=== PATIENT | female | born 1975 | race Caucasian/White ===

== ENCOUNTER → 2021-04-20 15:22 | Outpatient (CLI) | payer OTHER, SELFPAY ==
[2021-04-20 17:07] LABS: Hematocrit 21.4 % (37-47); Hemoglobin 6.8 g/dL (12.0-15.0); Mean Corp Hgb Conc 31.8 g/dL (32-36); Mean Corpuscular Hgb 27.1 pg (27.0-32.0); Mean Corpuscular Volume 85.3 fL (81-99); Platelet Count 234 K/mm3 (150-450); RBC Distribution Width SD 39.9 fl (35.1-43.9); Red Blood Count 2.51 M/mm3 (4.2-5.4); White Blood Count 3.3 K/mm3 (4.4-11.0)
[2021-04-20 17:26] LABS: Follicle Stimulating Hormone 11.4 mIU/mL; Luteinizing Hormone 3.1 mIU/mL; Prolactin 7.1 ng/mL; T4 Free Direct 0.97 ng/dL (0.76-1.46); Thyroid Stim Hormone (TSH) 1.24 uIU/mL (0.358-3.74)
[2021-04-25 15:18] LABS: HPV APTIMA, High Risk Negative (Negative)
== END ==
PROVIDERS: Visit Provider Obstetrics & Gynecology
DX: Z12.4 Encounter for screening for malignant neoplasm of cervix (principal); N92.6 Irregular menstruation, unspecified
CPT/HCPCS: 36415; 83001; 83002; 84146; 84439; 84443; 85027; 87624; 88175; G0145

== ENCOUNTER 2021-04-21 12:41 | Observation (INO) | payer OTHER, SELFPAY ==
[2021-04-21] VITALS (8 sets, daily range): BP systolic 102–111; BP diastolic 50–78; PULSE 68–85; RESP 16–18; TEMP 36.6–37.2; O2SAT 96–100; BMI 32.8
[2021-04-21 15:26] LABS: Absolute Neutrophil Count 2.1 X10^3/uL (2.0-7.7); Basophil# 0.02 X10^3/uL; Basophil% 0.6 % (0-1); Eosinophil# 0.05 X10^3/uL; Eosinophils% 1.5 % (0-5); Hematocrit 18.9 % (37-47); Lymphocyte % 21.6 % (19-41); Mean Corp Hgb Conc 31.7 g/dL (32-36); Mean Corpuscular Hgb 26.7 pg (27.0-32.0); Mean Platelet Vol. 9.4 fl (6.2-12.0); Monocyte# 0.37 X10^3/uL; Monocyte% 11.4 % (0-10); NRBC Flagged by Analyzer 0 % (0-5); Neutrophil # 2.09 X10^3/uL (2.7-7.7); Neutrophil % 64.6 % (47-70); Platelet Count 148 K/mm3 (150-450); RBC Distribution Width SD 39.4 fl (35.1-43.9); Red Blood Count 2.25 M/mm3 (4.2-5.4); White Blood Count 3.2 K/mm3 (4.4-11.0)
[2021-04-21 15:56] LABS: Anion Gap 5 (5-15); BUN 12 mg/dL (7-18); BUN/Creat Ratio 21.3 RATIO (10-20); Calcium,Total 8.4 mg/dL (8.5-10.1); Chloride 111 mmol/L (98-107); Creatinine, Serum 0.56 mg/dL (0.55-1.02); EST Glomerular Filtration Rate 122 mL/min (>60); Est Glom Filt Rate - Afr Amer 148 mL/min (>60); Estimated Creatinine Clearance 107.24 ml/min; Glucose 81 mg/dL (74-106); Potassium 3.7 mmol/L (3.5-5.1); Sodium Level 140 mmol/L (136-145)
--- NOTE | 2021-04-21 19:26 | PCM.HP.BLA ---
History and Physical Date of Admission: 04/21/21 Chief complaint: Vaginal bleeding History of present illness: 45-year-old with vaginal bleeding found to be severely anemic. Patient with mild weakness, overall able to ambulate. Denies chest pain, shortness of breath, nausea vomiting. Obstetric history: status post 4 vaginal deliveries Past medical history: None Medications: None Past surgical history: D&C Allergies: No known drug allergies Social history: Denies a history of smoking, alcohol use, drug use And history: Denies history DVT or PE Review of systems: Besides above pertinent positives a full review of systems was performed and found to be negative Physical exam: Vital signs: Blood pressure 106/61 pulse 79 respiratory rate 18 temp 98.7 SPO2 100% on room air General: Normal-appearing no acute distress HEENT: Normocephalic atraumatic no cervical lymphadenopathy Cardiac/respiratory: Nonlabored breathing, no use of accessory muscles Abdomen: Soft, nontender, positive bowel sounds Pelvic exam: normal external genitalia, normal vaginal rugae. Cervix within normal limits no lesions or masses. Small amount of blood in posterior vault. Uterus 7 to 8 cm no masses palpated. No adnexal masses palpated. Extremities: No edema, normal peripheral pulses Psych: Normal affect normal demeanor nonpressured speech In office ultrasound with retroverted uterus. Uterus measuring 8.7 x 6.7. Endometrium measuring 1.5 cm. Right and left ovary within normal limits. Assessment and plan: 45-year-old with acute blood loss anemia secondary to abnormal uterine bleeding. Patient previously started on OCP will increase dose to 1 tab every 6 hours until surgery tomorrow. For transfusion of 2 units of packed red blood cells now. Discussed medical versus surgical options for patient risk benefits alternatives included. Patient elects for hysteroscopy, dilation curettage, endometrial ablation. Patient understands the risk of the procedure include but are not limited to visceral or vascular injury, prolonged hospitalization, blood loss and need for transfusion, reoperation. Patient states understanding wish to proceed. All questions answered consent was signed. Scheduled for surgery tomorrow.
[2021-04-21 23:44] LABS: Internal QC Validated? YES +Cl - CLEAR BKGD; Pregnancy, Urine Negative Negative
[2021-04-22] VITALS (13 sets, daily range): BP systolic 88–117; BP diastolic 48–76; PULSE 62–91; RESP 16–18; TEMP 36.3–37.2; O2SAT 95–100; BMI 32.8
[2021-04-22] MEDS: NORGESTIMATE-ETHINYL ESTRADIOL 1 DOSE.PACK 1 TABLET PO ×4 (00:29→18:49)
[2021-04-22 06:01] LABS: Absolute Lymphocyte Count 0.68 X10^3/uL (0.83-4.51); Absolute Neutrophil Count 2.6 X10^3/uL (2.0-7.7); Basophil# 0.02 X10^3/uL; Basophil% 0.5 % (0-1); Eosinophil# 0.05 X10^3/uL; Eosinophils% 1.3 % (0-5); Hematocrit 24.4 % (37-47); Hemoglobin 7.9 g/dL (12.0-15.0); Lymphocyte # 0.68 X10^3/ul (0.83-4.51); Lymphocyte % 18.3 % (19-41); Mean Corp Hgb Conc 32.4 g/dL (32-36); Mean Corpuscular Hgb 27.7 pg (27.0-32.0); Mean Corpuscular Volume 85.6 fL (81-99); Mean Platelet Vol. 9.5 fl (6.2-12.0); Monocyte# 0.39 X10^3/uL; Monocyte% 10.5 % (0-10); NRBC Flagged by Analyzer 0 % (0-5); Neutrophil # 2.56 X10^3/uL (2.7-7.7); Neutrophil % 69.1 % (47-70); Platelet Count 142 K/mm3 (150-450); RBC Distribution Width CV 13.2 % (11.6-14.6); RBC Distribution Width SD 41.4 fl (35.1-43.9); Red Blood Count 2.85 M/mm3 (4.2-5.4); White Blood Count 3.7 K/mm3 (4.4-11.0)
[2021-04-22 06:13] LABS: International Normalized Ratio 1.4; Prothrombin Time (Protime)PT. 16.3 SECONDS (11.7-14.9)
[2021-04-22 06:14] LABS: Partial Thromboplast Time 31.1 Seconds (24.1-36.2)
[2021-04-22 06:32] LABS: AST(SGOT) 16 U/L (15-37); Alanine Aminotransfer ALT/SGPT 16 U/L (13-56); Albumin, Serum 2.9 g/dL (3.2-5.0); Alkaline Phosphatase 40 U/L (45-117); Bilirubin, Direct 0.17 mg/dL (0.00-0.30); Globulin 3.3 g/dL (2.2-4.2); Protein, Total 6.2 g/dL (6.4-8.2)
--- NOTE | 2021-04-22 09:06 | PCM.PN.OB ---
Subjective Subjective No overnight complaints. Vaginal bleeding has improved after increased OCP dose. Patient feels much improved after blood transfusion. Denies headache, chest pain, shortness of breath, nausea vomiting. Objective Data Objective Data Vital Signs: Vital Signs Temp Pulse Resp BP Pulse Ox 98.3 F 62 16 103/63 100 04/22/21 06:07 04/22/21 06:07 04/22/21 06:07 04/22/21 06:07 04/22/21 06:07 Oxygen Delivery Method Room Air Weight: 191 lb Body Mass Index (BMI) 32.8 Intake & Output: Intake and Output for Last 24 Hours 04/20/21 04/21/21 04/22/21 23:59 23:59 23:59 Intake Total 1160 / 1160 Balance 1160 / 1160 Lab / Micro Data Result Diagrams: 04/22/21 05:44 04/21/21 15:10 Labs: Laboratory Results - last 24 hr 04/21/21 04/21/21 04/21/21 15:10 15:10 15:15 WBC 3.2 L RBC 2.25 L Hgb 6.0 L* Hct 18.9 L MCV 84.0 MCH 26.7 L MCHC 31.7 L RDW Std Deviation 39.4 RDW Coeff of Misty 13.0 Plt Count 148 L MPV 9.4 Immature Gran % (Auto) 0.300 Neut % (Auto) 64.6 Lymph % (Auto) 21.6 [place] % (Auto) 11.4 H Eos % (Auto) 1.5 Baso % (Auto) 0.6 Absolute Neuts (auto) 2.1 Absolute Lymphs (auto) 0.70 L Nucleated RBC % 0 PT INR APTT Sodium 140 Potassium 3.7 Chloride 111 H Carbon Dioxide 24.0 Anion Gap 5 BUN 12 Creatinine 0.56 Estim Creat Clear Calc 107.24 Est GFR (MDRD) Af Amer 148 Est GFR (MDRD) Non-Af 122 BUN/Creatinine Ratio 21.3 H Glucose 81 Calcium 8.4 L Total Bilirubin Direct Bilirubin AST ALT Alkaline Phosphatase Total Protein Albumin Globulin Urine Test Blood Type A POSITIVE Antibody Screen NEGATIVE Crossmatch See Detail 04/21/21 04/22/21 04/22/21 23:29 05:44 05:44 WBC 3.7 L RBC 2.85 L Hgb 7.9 L Hct 24.4 L MCV 85.6 MCH 27.7 MCHC 32.4 RDW Std Deviation 41.4 RDW Coeff of Misty 13.2 Plt Count 142 L MPV 9.5 Immature Gran % (Auto) 0.300 Neut % (Auto) 69.1 Lymph % (Auto) 18.3 L [place] % (Auto) 10.5 H Eos % (Auto) 1.3 Baso % (Auto) 0.5 Absolute Neuts (auto) 2.6 Absolute Lymphs (auto) 0.68 L Nucleated RBC % 0 PT 16.3 H INR 1.4 APTT 31.1 Sodium Potassium Chloride Carbon Dioxide Anion Gap BUN Creatinine Estim Creat Clear Calc Est GFR (MDRD) Af Amer Est GFR (MDRD) Non-Af BUN/Creatinine Ratio Glucose Calcium Total Bilirubin Direct Bilirubin AST ALT Alkaline Phosphatase Total Protein Albumin Globulin Urine Test Negative Blood Type Antibody Screen Crossmatch 04/22/21 05:44 WBC RBC Hgb Hct MCV MCH MCHC RDW Std Deviation RDW Coeff of Misty Plt Count MPV Immature Gran % (Auto) Neut % (Auto) Lymph % (Auto) [place] % (Auto) Eos % (Auto) Baso % (Auto) Absolute Neuts (auto) Absolute Lymphs (auto) Nucleated RBC % PT INR APTT Sodium Potassium Chloride Carbon Dioxide Anion Gap BUN Creatinine Estim Creat Clear Calc Est GFR (MDRD) Af Amer Est GFR (MDRD) Non-Af BUN/Creatinine Ratio Glucose Calcium Total Bilirubin 0.60 Direct Bilirubin 0.17 AST 16 ALT 16 Alkaline Phosphatase 40 L Total Protein 6.2 L Albumin 2.9 L Globulin 3.3 Urine Test Blood Type Antibody Screen Crossmatch Physical Exam Const alert, oriented x3 and no apparent distress Exam Limitations: no limitations HEENT normocephalic and moist oral mucous membranes Head and Scalp: atraumatic Neck full ROM and no lymphadenopathy Lymph Lymphatic: no lymphadenopathy noted Resp normal respiratory effort, no retractions and no use of accessory muscles GI normal to inspection, nondistended, normoactive bowel sounds Extremity normal to inspection, full ROM and no clubbing, cyanosis or edema Skin no rashes or lesions noted Psych mental status grossly normal, affect normal, speech normal and activity/motor behavior normal Assessment & Plan (1) Abnormal uterine and vaginal bleeding, unspecified: PLAN: Hospital day 2 with abnormal uterine bleeding. Status post 2 units of packed red blood cell with appropriate rise in hemoglobin and vital signs stable. Patient feels much improved after transfusion. Patient started on OCP every 6 hours with improvement in vaginal bleeding. Patient scheduled today for hysteroscopy dilation curettage and Lizzette endometrial ablation. To remain n.p.o. Covid test ordered. Will likely discharge home tomorrow assuming stability
[2021-04-22 13:27] LABS: Pathologist Review Reviewed
[2021-04-22] MEDS: Lactated Ringers 1,000 ML 100 ML IV ×2 (13:55→16:05)
--- NOTE | 2021-04-22 14:30 | EMB_PTH ---
PATIENT: DELILAH KRAMER LOC: MS3 U#:[id number] AGE/SX: 45/F ROOM: [facility] – [place] RE04/21/[address]: Dr. Denise Howard DO : 1975 BED: 1 DIS: 04/23/2021 SPEC #: [id number] RECD: 04/22/21 15:52 STATUS: EZE REQ #: [id number] ANA LUISA: 04/22/21 14:[address]: Yogesh Howard DEPT: SURGICAL PATHOLOGY RECD BY: Kenisha Garces ENTERED: 04/23/21 10:12 SP TYPE: ENDOM BX/C OTHR DR: DO Dr. Jose M Dobson DO Tissues: A - Endometrium, NOS B - Fallopian tube Procedures: Surgery Specimen Level II Surgery Specimen Level IV Comments: @ Ordering doctor for SUII edited from to @ by SHAN at 04/23/21 1240 @ Ordering doctor for SUIV edited from to @ by SHAN at 04/23/21 1240 @ Submitting doctor edited from to @ by SHAN at 04/23/21 1240 HEADER OPERATION: Hysteroscopy, D & C, Lizzette, bilateral tubal ligation PRE-OP DIAGNOSIS: Abnormal uterine and vaginal bleeding TISSUE SUBMITTED: A ? Endometrial curettage, B ? Bilateral fallopian tubes MICROSCOPIC DIAGNOSIS A. Endometrial curettings: Disordered proliferative endometrium with focal glandular and stromal breakdown. B. Bilateral fallopian tubes, salpingectomy: Bilateral fallopian tubes, no pathologic diagnosis. SJ:ivan 04/24/2021 MICROSCOPIC DESCRIPTION Slides are reviewed. GROSS DESCRIPTION A - Received in fixative is one container labeled with the patient's name and designated endometrial curettings. The specimen consists of multiple irregular fragments of champion-red soft tissue that in aggregate measure 6 x 3 x 0.2 cm. The specimen is totally submitted in two cassettes. B - Received in fixative is one container labeled with the patient's name and designated bilateral fallopian tubes. The specimen consists of one fallopian tube measuring 5 cm in length and 0.6 cm in average diameter. A normal fimbriated end is present. The second fallopian tube is received in three fragments and in aggregate measures 7 cm in length and 0.5 cm in average diameter. The fimbriated end has a normal villous appearance. Commodity Loan Clerk sections from both fallopian tubes are submitted in two separate cassettes. / AM:ivan 04/23/21 TC:5 CPT: 87998, 86677 x2
--- NOTE | 2021-04-22 14:30 | EMB_PTH ---
PATIENT: DELILAH KRAMER LOC: MS3 U#:[id number] AGE/SX: 45/F ROOM: [facility] [place] RE04/21/[address]: Dr. Denise Howard DO : 1975 BED: 1 DIS: 04/23/2021 SPEC #: [id number] RECD: 04/22/21 15:52 STATUS: EZE REQ #: [id number] ANA LUISA: 04/22/21 14:[address]: Yogesh Howard DEPT: SURGICAL PATHOLOGY RECD BY: Kenisha Garces ENTERED: 04/23/21 10:12 SP TYPE: ENDOM BX/C OTHR DR: DO Dr. Jose M Dobson DO Tissues: A - Endometrium, NOS B - Fallopian tube Procedures: Surgery Specimen Level II Surgery Specimen Level IV Comments: @ Ordering doctor for SUII edited from to @ by SHAN at 04/23/21 1240 @ Ordering doctor for SUIV edited from to @ by SHAN at 04/23/21 1240 @ Submitting doctor edited from to @ by SHAN at 04/23/21 1240 HEADER OPERATION: Hysteroscopy, D & C, Lizzette, bilateral tubal ligation PRE-OP DIAGNOSIS: Abnormal uterine and vaginal bleeding TISSUE SUBMITTED: A ? Endometrial curettage, B ? Bilateral fallopian tubes MICROSCOPIC DIAGNOSIS A. Endometrial curettings: Disordered proliferative endometrium to simple hyperplasia without atypia with focal glandular and stromal breakdown. B. Bilateral fallopian tubes, salpingectomy: Bilateral fallopian tubes, no pathologic diagnosis. SJ:ivan 04/24/2021 SJ:ivan 04/29/2021 COMMENT Case has been reviewed in consultation with Dr. Sutton who concurs with the above diagnosis. IDC:AM MICROSCOPIC DESCRIPTION Slides are reviewed. GROSS DESCRIPTION A - Received in fixative is one container labeled with the patient's name and designated endometrial curettings. The specimen consists of multiple irregular fragments of champion-red soft tissue that in aggregate measure 6 x 3 x 0.2 cm. The specimen is totally submitted in two cassettes. B - Received in fixative is one container labeled with the patient's name and designated bilateral fallopian tubes. The specimen consists of one fallopian tube measuring 5 cm in length and 0.6 cm in average diameter. A normal fimbriated end is present. The second fallopian tube is received in three fragments and in aggregate measures 7 cm in length and 0.5 cm in average diameter. The fimbriated end has a normal villous appearance. Weaving Supervisor sections from both fallopian tubes are submitted in two separate cassettes. / AM:ivan 04/23/21 TC:5 CPT: 66292, 57362 x2
--- NOTE | 2021-04-22 15:40 | OP.PCM_ITS ---
Report of Operation Date of Procedure: 04/22/21 Pre-Operative Diagnosis: Abnormal uterine bleeding, acute blood loss anemia Post-Operative Diagnosis: Abnormal uterine bleeding, acute blood loss anemia Surgery/Procedure Performed:: Hysteroscopy, dilation curettage, endometrial ablation via Lizzette. Laparoscopic bilateral salpingectomy Description of Surgical Findings:: Surgeon: Yogesh Howard MD Anesthesia: General EBL: 10 cc Urine output: 300 cc IV fluids: 1000 cc Complications: None Specimen: Endometrial curettage, bilateral fallopian tubes Findings: Hysteroscopy with no signs of polyp or fibroid, within normal limits. Laparoscopy with normal uterus, tubes, and ovaries. 120 second endometrial ablation via Lizzette device performed uterine cavity 8 cm in length with cervical length 3 cm, cavity length 5 cm. Lizzette device cavity safety tests were passed. Consent: Patient with abnormal uterine bleeding and acute blood loss anemia in need of hysteroscopy dilation curettage, endometrial ablation via Lizzette and desires pe rmanent sterilization in need of bilateral tubal ligation. Patient understands the risk of the procedure include but are not limited to visceral or vascular injury, prolonged hospitalization, blood loss and need for transfusion, reoperation. Patient states understanding wish to proceed. All questions were answered and consent was signed. Procedure: Patient was brought back to the OR where general anesthesia found to be adequate. Patient was prepared and draped in a dorsolithotomy position with yellowfin stirrups. A weighted speculum placed in the posterior aspect of the vagina. Cervical dilators were used to dilate the cervix. Hysteroscope was inserted and above findings were noted. Endometrial curettage was performed and sent to pathology. Lizzette device was opened and cavity length set to 5 cm. Lizzette device was inserted and Lizzette cavity safety tests were passed. 120 second endometrial ablation was performed. Varies needle was inserted at the umbilicus, water safety test was passed, abdomen was insufflated. Infraumbilical fold incision was made for 5 mm trocar and trocar was inserted under direct visualization. Laparoscope was inserted and above findings were noted. Right lower quadrant 8 mm trocar was inserted under direct visualization. Left lower quadrant 5 mm trocar was then inserted under direct visualization. Using an atraumatic grasper and a LigaSure device the right fallopian tube was identified out to the fimbria and the mesosalpinx was cut and cauterized. Fallopian tube was removed and sent to pathology. Left fallopian tube was identified out to the fimbriae mesosalpinx was cut and cauterized and fallopian tube was removed and sent to pathology. Good hemostasis was noted. Abdomen was desufflated and trochars removed under direct visualization. Laparoscopic port sites were closed in a subcutaneous fashion. Good hemostasis was noted. All counts correct x2. Patient tolerated procedure well and was brought to recovery in a stable condition. nuclear medicine officer: Jose Antonio Farnsworth
[2021-04-22] MEDS: Acetaminophen 500 MG Tablet 1000 MG PO (18:49)
[2021-04-22] MEDS: 0.9% Saline Lock 10 ML Syringe IV (18:49)
[2021-04-22] MEDS: Ketorolac 30 MG/ML Syringe IV (18:49)
[2021-04-22] MEDS: Docusate Sodium 100 MG Capsule PO (22:01)
[2021-04-23] MEDS: Ketorolac 30 MG/ML Syringe IV ×2 (00:01→05:02)
[2021-04-23] MEDS: Acetaminophen 500 MG Tablet 1000 MG PO ×2 (00:01→05:02)
[2021-04-23] MEDS: 0.9% Saline Lock 10 ML Syringe IV ×2 (00:01→05:02)
[2021-04-23 00:08] VITALS: BP 93/58; PULSE 90; RESP 16; TEMP 36.8; O2SAT 100
[2021-04-23] MEDS: NORGESTIMATE-ETHINYL ESTRADIOL 1 DOSE.PACK 1 TABLET PO ×2 (05:02)
[2021-04-23 05:10] VITALS: BP 106/56; PULSE 86; RESP 16; TEMP 36.8; O2SAT 100
[2021-04-23 05:38] LABS: Hematocrit 23.9 % (37-47); Hemoglobin 7.8 g/dL (12.0-15.0); Mean Corp Hgb Conc 32.6 g/dL (32-36); Mean Corpuscular Hgb 27.3 pg (27.0-32.0); Mean Corpuscular Volume 83.6 fL (81-99); Mean Platelet Vol. 9.4 fl (6.2-12.0); Platelet Count 165 K/mm3 (150-450); RBC Distribution Width CV 13.3 % (11.6-14.6); RBC Distribution Width SD 41.3 fl (35.1-43.9); Red Blood Count 2.86 M/mm3 (4.2-5.4); White Blood Count 6.2 K/mm3 (4.4-11.0)
--- NOTE | 2021-04-23 07:09 | PCM.DC.BLA ---
Discharge Summary Date of Admission: 04/21/21 Date of Discharge: 04/23/21 Summary: Patient arrived to hospital on 04/21/2021 after being seen in office found to have severe anemia secondary to acute blood loss from abnormal uterine bleeding. Patient was admitted to the hospital and transfused 2 units of packed red blood cells and scheduled for surgery and started on estrogen. Patient underwent surgery on 04/22/2021 hysteroscopy dilation curettage endometrial ablation laparoscopic bilateral salpingectomy. Patient recovered overnight minimal bleeding and discharge home on 04/23/2021 with stable hemoglobin, stable vital signs, improved symptoms. Physical Exam Const alert, oriented x3 and no apparent distress HEENT normocephalic and moist oral mucous membranes Head and Scalp: normal to inspection and atraumatic Eyes PERRL Neck full ROM and no lymphadenopathy Resp normal respiratory effort, no retractions and no use of accessory muscles GI normal to inspection, nondistended, normoactive bowel sounds GI Narrative: Laparoscopic incisions clean dry and intact Extremity normal to inspection and full ROM Skin no rashes or lesions noted Psych mental status grossly normal, thought process normal, cooperative, affect normal and speech normal Meaningful Use Info Meaningful Use Diagnoses (Choose all that apply): None applicable Discharge Plan Admission Admit Date/Time: 04/21/21 12:41 Primary Reason for Your Visit: Abnormal uterine bleeding Attending Provider: Denise Howard Primary Care Provider: Jose M Schulz Instructions Patient Instructions: ED Dysfunctional Uterine Bleeding Additional Instructions / Restrictions: Regular diet. Lifting restrictions less than 25 pounds for 2 to 3 weeks, otherwise continue normal activity. Can drive. Can shower. No tub baths for 2 weeks. Call if fevers, increased bleeding, poorly controlled pain. Discharge Orders/Prescriptions Prescriptions: Discontinued norgestimate-ethinyl estradiol [Sprintec (28)] 0.25-35 mg-mcg Tablet 1 tab PO DAILY RF: 0 Referrals / Follow Up: Yogesh Howard MD [STAFF PHYSICIAN] - Within 2 Weeks Jose M Schulz DO [Primary Care Provider] - Disposition Disposition (needs filled in before D/C Order can be placed): Home, self care
--- NOTE | 2021-04-23 07:16 | PN.OBGYN_ITS ---
Subjective Subjective No overnight complaints. Minimal to no bleeding overnight. Feeling much improved. Denies headache, weakness, visual changes, chest pain, shortness of breath, nausea vomiting. Objective Data Objective Data Vital Signs: Vital Signs Temp Pulse Resp BP Pulse Ox 98.2 F 86 16 106/56 L 100 04/23/21 05:10 04/23/21 05:10 04/23/21 05:10 04/23/21 05:10 04/23/21 05:10 Oxygen Delivery Method Room Air Weight: 191 lb Body Mass Index (BMI) 32.8 Intake & Output: Intake and Output for Last 24 Hours 04/21/21 04/22/21 04/23/21 23:59 23:59 23:59 Intake Total 1160 / 1160 1000 / 1000 1747.17 / 1747.17 Output Total 300 / 300 700 / 700 Balance 1160 / 1160 700 / 700 1047.17 / 1047.17 Lab / Micro Data Result Diagrams: 04/23/21 05:17 04/21/21 15:10 Labs: Laboratory Results - last 24 hr 04/21/21 04/23/21 15:10 05:17 WBC 6.2 RBC 2.86 L Hgb 7.8 L Hct 23.9 L MCV 83.6 MCH 27.3 MCHC 32.6 RDW Std Deviation 41.3 RDW Coeff of Misty 13.3 Plt Count 165 MPV 9.4 [address] Review Reviewed Micro: Microbiology 04/22/21 09:00 Interface Orders SARS-CoV-2 Antigen (Rapid) - Final Physical Exam Const alert, oriented x3 and no apparent distress HEENT normocephalic Head and Scalp: atraumatic Eyes PERRL Neck full ROM and no lymphadenopathy Lymph Lymphatic: no lymphadenopathy noted Resp normal respiratory effort, no retractions and no use of accessory muscles GI normal to inspection, nondistended, normoactive bowel sounds Extremity normal to inspection, full ROM and no clubbing, cyanosis or edema Skin no rashes or lesions noted Psych mental status grossly normal, affect normal, speech normal and activity/motor behavior normal Assessment & Plan (1) Abnormal uterine and vaginal bleeding, unspecified: PLAN: Postoperative day 1 status post hysteroscopy dilation curettage Lizzette endometrial ablation and laparoscopic bilateral salpingectomy. Bleeding minimal minimal to none, hemoglobin stable status post units packed red blood c ells on 04/21/2021, vital signs stable, patient symptoms improved and asymptomatic. Will stop OCP. Based on stability okay to discharge home today. We will continue iron pill, discussed precautions. To follow-up in 2 weeks.
[2021-04-23 07:58] VITALS: O2SAT 98
--- NOTE | 2021-04-23 09:50 | PHA.DC.MR ---
Pharmacy Service has performed discharge medication reconciliation for this patient. No new medications at time of discharge. -Pt has no home medications The patient's discharge medication list was reviewed for discrepancies and discrepancies were resolved.
== END 2021-04-23 10:13 | disposition home or self-care (01) ==
PROVIDERS: Anesthesiology; Obstetrics & Gynecology; Admitting Provider Student in an Organized Health Care Education/Training Program; PCP Family Medicine; Visit Provider Student in an Organized Health Care Education/Training Program
PROC: 0U5B8ZZ Destruction of Endometrium, Via Natural or Artificial Opening Endoscopic (ICD-10-PCS; CPT 58558; principal; 2021-04-22 14:15)
DX: N85.01 Benign endometrial hyperplasia (principal); D62 Acute posthemorrhagic anemia; N93.9 Abnormal uterine and vaginal bleeding, unspecified; Z30.2 Encounter for sterilization
CPT/HCPCS: 58563; 58661; 36415; 36430; 80048; 80076; 81025; 85025; 85027; 85610; 85730; 86850; 86900; 86901; 86920; 86922; 87426; 88302; 88305; 96361; 96374; 96376; 99218; 99251; J7040; J7120; P9016; A4216; G0378; G0379; G0463; J2405

== ENCOUNTER → 2021-05-07 11:06 | Outpatient (CLI) | payer OTHER, SELFPAY ==
[2021-04-22 13:58] VITALS: BMI 32.8
[2021-05-07 12:36] LABS: Hematocrit 25.5 % (37-47); Mean Corp Hgb Conc 31.4 g/dL (32-36); Mean Corpuscular Hgb 26.1 pg (27.0-32.0); Mean Corpuscular Volume 83.1 fL (81-99); Mean Platelet Vol. 10.3 fl (6.2-12.0); Platelet Count 228 K/mm3 (150-450); RBC Distribution Width CV 14.5 % (11.6-14.6); RBC Distribution Width SD 43.4 fl (35.1-43.9); Red Blood Count 3.07 M/mm3 (4.2-5.4); White Blood Count 3.5 K/mm3 (4.4-11.0)
== END ==
PROVIDERS: PCP Family Medicine; Visit Provider Obstetrics & Gynecology
DX: N93.9 Abnormal uterine and vaginal bleeding, unspecified (principal)
CPT/HCPCS: 36415; 85027

== ENCOUNTER 2021-06-11 07:22 | Day surgery (SDC) | payer SELFPAY, OTHER ==
[2021-04-22 13:58] VITALS: BMI 32.8
[2021-06-08 17:18] LABS: Hematocrit 29.4 % (37-47); Hemoglobin 8.9 g/dL (12.0-15.0); Mean Corp Hgb Conc 30.3 g/dL (32-36); Mean Corpuscular Hgb 24.3 pg (27.0-32.0); Mean Corpuscular Volume 80.1 fL (81-99); Mean Platelet Vol. 10.9 fl (6.2-12.0); Platelet Count 227 K/mm3 (150-450); RBC Distribution Width CV 17.6 % (11.6-14.6); RBC Distribution Width SD 51.3 fl (35.1-43.9); Red Blood Count 3.67 M/mm3 (4.2-5.4); White Blood Count 4.9 K/mm3 (4.4-11.0)
[2021-06-08 17:43] LABS: International Normalized Ratio 1.3; Partial Thromboplast Time 34.3 Seconds (24.1-36.2); Prothrombin Time (Protime)PT. 15.8 SECONDS (11.7-14.9)
[2021-06-08 17:48] LABS: AST(SGOT) 24 U/L (15-37); Alanine Aminotransfer ALT/SGPT 23 U/L (13-56); Albumin, Serum 3.9 g/dL (3.2-5.0); Alkaline Phosphatase 49 U/L (45-117); Bilirubin, Direct 0.14 mg/dL (0.00-0.30); Globulin 3.6 g/dL (2.2-4.2); Magnesium 2.1 mg/dL (1.6-2.6); Protein, Total 7.5 g/dL (6.4-8.2)
[2021-06-11] VITALS (22 sets, daily range): BP systolic 84–130; BP diastolic 48–84; PULSE 56–87; RESP 14–18; TEMP 35.9–36.2; O2SAT 100; BMI 34.9
[2021-06-11] MEDS: Lactated Ringers 1,000 ML 40 ML IV ×3 (08:04→14:10)
[2021-06-11] MEDS: Acetaminophen 500 MG Tablet 1000 MG PO (08:09)
[2021-06-11] MEDS: Gabapentin 600 MG Tablet PO (08:10)
[2021-06-11 08:30] LABS: Bedside Glucose 61 mg/dL (70-110)
--- NOTE | 2021-06-11 09:30 | HYST_PTH ---
PATIENT: DELILAH KRAMER LOC: [facility] – [place] U#:[id number] AGE/SX: 45/F ROOM: RE06/11/[address]: Dr. Yogesh Howard MD : 1975 BED: DIS: 06/11/2021 SPEC #: [id number] RECD: 06/11/21 14:19 STATUS: EZE REMilli #: [id number] ANA LUISA: 06/11/21 09:[address]: Yogesh Howard DEPT: SURGICAL PATHOLOGY RECD BY: Jose Douglas ENTERED: 06/12/21 07:38 SP TYPE: HYSTERECT OTHR DR: Dr. Jose M Schulz, DO Tissues: Uterus, NOS Procedures: Surgery Specimen Level V HEADER OPERATION: Total Laparoscopic hysterectomy, cystoscopy PRE-OP DIAGNOSIS: Endometrial hyperplasia TISSUE SUBMITTED: Cervix, uterus MICROSCOPIC DIAGNOSIS Uterus, hysterectomy: Cervix ? nabothian cysts, squamous metaplasia and mild chronic inflammation. Endometrium ? secretory endometrium. Myometrium ? focal superficial adenomyosis and leiomyoma. AM:ivan 06/15/2021 COMMENT Case has been reviewed in consultation with Dr. Madrid who concurs with the above diagnosis. IDC:SJ MICROSCOPIC DESCRIPTION Slides are reviewed. GROSS DESCRIPTION Received in fixative is one container labeled with the patient's name and designated cervix, uterus. The specimen consists of a hysterectomy specimen consisting of uterus with cervix weighing 129 gm and measuring 9 x 7 x 4 cm. A subserosal nodule is noted. The rest of the serosal surface is champion, glistening. The ectocervical mucosa is unremarkable. The external os is slit-like in contour. The endocervical canal measures 2.6 cm in length and the endocervical mucosa is champion, glistening and unremarkable. Sections of the rest reveal a few cysts filled with mucoid material. The triangular endometrial cavity measures 4.5 cm in length and up to 2.5 cm in width. The endometrium is champion, glistening without any mass lesion and measures 0.1 cm in thickness. Sections of the uterine wall reveal a subserosal, champion, nodular mass measuring 1 cm in diameter. The uninvolved uterine wall measures up to 2.5 cm in thickness. Pharmacy Picking Tech sections are submitted in 11 cassettes as follows: 1 - anterior cervix, 2 - posterior cervix, 3-6 - anterior uterine wall, 7-10 - posterior uterine wall, entire endometrium is submitted, 11??nodular mass. / SJ:ivan 06/12/21 TC:5 CPT: 49695
--- NOTE | 2021-06-11 10:01 | PCM.HP.BLA ---
History and Physical Date of Admission: 06/11/21 Chief complaint: Endometrial hyperplasia History of present illness: 45-year-old for elective robotic assisted total laparoscopic hysterectomy bilateral salpingectomy, cystoscopy for endometrial hyperplasia. Patient denies headache, chest pain, shortness of breath, nausea vomiting, diarrhea, visual changes. Obstetric history: Patient status post for 's Past medical history: Denies Medications: None Past surgical history: D&C, hysteroscopy endometrial ablation Allergies: No known drug allergies Social history: Denies smoking, alcohol use, drug use Family history: Denies history DVT or PE Review of systems: Besides above pertinent positives a full review of systems was performed found to be negative Physical exam: Blood pressure: 123/60 pulse 66 respiratory rate 14 SPO2 100% on room air General: Normal-appearing no acute distress HEENT: Normocytic atraumatic no cervical of adenopathy Cardiac/respiratory: No use of accessory muscles, nonlabored breathing Abdomen: Soft, nontender, nondistended. Positive bowel sounds Pelvic exam: Normal external genitalia, normal vaginal rugae, cervix within normal limits. No palpable adnexal masses Extremities: No peripheral edema normal peripheral pulses Psych: Normal affect normal demeanor nonpressured speech Labs: Hemoglobin 8.9, hematocrit 29.4%. Blood type a positive antibody negative Assessment plan: 45-year-old with endometrial hyperplasia discussed risk benefits alternatives including expectant management patient anxious with hyperplasia elects for robotic assisted total laparoscopic direct me bilateral salpingectomy and cystoscopy. All questions were answered and consent was signed.
[2021-06-11] MEDS: Cefazolin 2 GM in 0.9% Normal Saline 100 ML IV (10:52)
[2021-06-11] MEDS: Lactated Ringers 1,000 ML 100 ML IV (11:30)
--- NOTE | 2021-06-11 13:48 | PCM.OPRPT ---
Report of Operation Date of Procedure: 06/11/21 Pre-Operative Diagnosis: Endometrial hyperplasia Post-Operative Diagnosis: Endometrial hyperplasia Surgery/Procedure Performed:: Total laparoscopic hysterectomy, cystoscopy Description of Surgical Findings:: Surgeon: Yogesh Howard MD Anesthesia: General EBL: 300 cc Urine output: 400 cc IV fluids: 1400 cc Complications none Specimen: cervix and uterus Findings: Normal uterus, tubes, ovaries. Cystoscopy post procedure revealed bilateral ureteral jets and no further pathology noted. Consent: Patient with endometrial hyperplasia anxious elects for total laparoscopic hysterectomy, cystoscopy. Patient understands risk of the procedure include but are not limited to visceral or vascular injury, prolonged hospitalization, blood loss need for transfusion, reoperation. Patient state understanding wish proceed. All questions answered consent was signed. Procedure: Patient is brought back to the OR where general anesthesia found to be adequate. 2 g of Ancef were given for infection prophylaxis. Patient was apparent draped in dorsal lithotomy position with yellowfin stirrups. Weighted speculum is placed in the posterior aspect of the vagina. Cervical dilators were used to dilate the cervix. Uterine manipulator was placed. Varies needle was inserted at the umbilicus x2 water safety test passed x2, failed insufflation. Varies needle inserted at [place] water safety test passed but with failed insufflation. Using a 5 mm trocar direct visualization Optiview performed at [place] abdomen was insufflated and above findings were noted. Bilateral lower quadrant 8 mm trochars were inserted under direct visualization. 8 mm trocar was inserted under direct visualization supraumbilical midline. Right upper quadrant 8 mm trocar was placed. Robot was docked and fenestrated bipolar monopolar scissors were attached. Left round ligament was cut and cauterized but noted robotic arm manipulation/articulation and inappropriate, unhooked/disconnected robot undocked and you straight stick manual instruments going forward. 8 mm supraumbilical trocar was removed and 12 mm trocar was inserted under direct visualization to use 10 mm laparoscope. Using an atraumatic grasper and a LigaSure device with L-hook the right round ligament was cut and cauterized, anterior posterior portions of broad ligament dissected. Bladder flap developed. Right utero-ovarian ligament cut and cauterized. Uterine arteries on the right were skeletonized cut and cauterized lateralized beyond the level of colpotomy cup. Left utero-ovarian ligament cut and cauterized. Bladder flap further developed beyond the level of colpotomy cup. Left uterine vessels were skeletonized cut and cauterized lateralized beyond the level colpotomy cup. Circumferential colpotomy was made, uterus was removed and good hemostasis was noted. Abdomen was desufflated 12 mm trocar fascia was closed. All other trochars were closed in a subcuticular fashion. Colpotomy was closed vaginally with continuous running lock suture. Good hemostasis was noted. Cystoscopy was performed and bilateral ureteral jets were noted, no further pathology noted. All counts correct x2. Patient tolerated procedure well was brought to recovery stable condition. car construction superintendent: Camryn Warner
--- NOTE | 2021-06-11 13:58 | PCM.DC ---
Discharge Instructions Diet Discharge Diet: No restrictions Activity Discharge Activity: Return to Normal Activity, May Drive and May Shower Lifting Restrictions: No lifting over 25 pounds for 2 to 3 weeks Dressing / Incision Call your doctor if your incision/area has: Continuous Slow Oozing and Foul Smelling Discharge Call your doctor if you observe: Fever of 101 or Higher, Shortness of breath and Chest pain Follow Up Care Please Follow Up With: Yogesh Howard MD When: 2 weeks postoperatively Test Results: Test results from this visit will be discussed in further detail at your follow-up appointment, if applicable. Discharge Plan Admission Attending Provider: Yogesh Howard Primary Care Provider: Jose M Schulz Discharge Orders/Prescriptions Prescriptions: New oxycodone 5 mg Tablet 5 mg PO Q6H PRN PRN (Reason: Pain Score 4-10/10) 5 Days Qty: 20 RF: 0 Continued ferrous sulfate [Iron (ferrous sulfate)] 325 mg (65 mg iron) Tablet 325 mg PO QODAY RF: 0 multivitamin Capsule 1 cap PO DAILY RF: 0 Referrals / Follow Up: Jose M Schulz DO [Primary Care Provider] - Disposition Disposition (needs filled in before D/C Order can be placed): Home, Self Care
== END 2021-06-11 20:30 | disposition home or self-care (01) ==
LOC: SDC 07:24 → AC 07:24
PROVIDERS: Anesthesiology; PCP Family Medicine; Referring Provider Obstetrics & Gynecology; Visit Provider Obstetrics & Gynecology
PROC: 0UT94ZZ Resection of Uterus, Percutaneous Endoscopic Approach (ICD-10-PCS; CPT 58570; principal; 2021-06-11 09:10)
DX: N87.9 Dysplasia of cervix uteri, unspecified (principal); D26.1 Other benign neoplasm of corpus uteri; N80.0 Endometriosis of uterus; N88.8 Other specified noninflammatory disorders of cervix uteri; N72 Inflammatory disease of cervix uteri; D64.9 Anemia, unspecified; Z20.822 Contact with and (suspected) exposure to COVID-19; Z79.899 Other long term (current) drug therapy
CPT/HCPCS: 00840; 58570; S2900; 36415; 80076; 82962; 83735; 85027; 85610; 85730; 86850; 86900; 86901; 87426; 88307; C9803; J7120; J2405

== ENCOUNTER 2024-10-02 04:07 | Emergency (ER) | payer OTHER, SELFPAY ==
[2024-10-02 04:09] VITALS: BP 137/83; PULSE 92; RESP 16; TEMP 36.6; O2SAT 100; BMI 34.7
--- NOTE | 2024-10-02 04:12 | EKG12_ITS ---
Test Reason : Blood Pressure : */* mmHG Vent. Rate : 84 BPM Atrial Rate : 84 BPM P-R Int : 164 ms QRS Dur : 86 ms QT Int : 376 ms P-R-T Axes : 34 20 29 degrees QTcB Int : 444 ms Normal sinus rhythm Normal ECG Confirmed by Eber Jeronimo ([id number]), content editor TALIA DOUGHERTY ([id number]) on 10/02/2024 9:22:49 AM Referred By: Confirmed By: Eber Jeronimo
[2024-10-02 04:13] VITALS: BMI 34.7
--- NOTE | 2024-10-02 04:13 | ED.VIS.LOWEX ---
HPI History of Present Illness Chief Complaint: Lower Extremity Injury Informant: patient and spouse/S.O. Narrative Narrative: Brought in by EMS from home right lower extremity pain. Per spouse symptoms throughout the day lateral aspect upper thigh. The evening reported felt like something moved up her leg and became short of breath for 15 minutes. EMS was contacted. States symptoms currently mild. No history of PE or DVT. 3 weeks ago had travel 9 hours with 1 stop. No cough. Hysterectomy 2 years ago. Denies any other past medical history. Denies any allergies. Prior similar symptoms: No PFSH PFSH Medical History Wears glasses Wears partial dentures Anemia Easy bruising Restless legs Non-smoker History of edema Bleeding tendency Anemia Home Medications ?Medication ?Instructions ?Recorded ?Last Taken ?Type ferrous sulfate 325 mg (65 mg 325 mg PO QODAY 06/04/21 Unknown History iron) tablet (Iron (ferrous sulfate)) multivitamin 1 cap PO DAILY 06/04/21 Unknown History oxycodone 5 mg tablet 5 mg PO Q6H PRN PRN Pain Score 06/11/21 Unknown Rx 4-1010 5 days #20 tabs Allergy/AdvReac Type Severity Reaction Status Date / Time No Known Allergies Allergy Verified 10/02/24 04:08 Family History no significant family his Surgical History History of hysteroscopy Hx of dilation and curettage Social History Smoking Status: Never smoker ROS ROS ED Constitutional Constitutional ED: Denies chills, fever(s) or sweats Eyes Eyes: Denies change in vision ENT ENT ED: Denies dysphagia or sore throat Cardiovascular Cardiovascular: Denies chest pain, leg edema, palpitations or racing heartbeat Respiratory/Chest Respiratory/Chest: Reports dyspnea; Denies cough or dyspnea on exertion Gastrointestinal Gastrointestinal: Denies abdominal pain, diarrhea, nausea or vomiting Genitourinary Genitourinary ED: Denies dysuria, hematuria or urinary frequency Musculoskeletal Musculoskeletal: Reports extremity pain; Denies back pain or neck pain Integumentary Denies rash or wounds Neurologic Neurologic: Denies headache(s), paresthesias or weakness EXAM Physical Exam Const Vital Signs: 10/02/24 04:09 Temperature 97.8 F Temperature Source Oral Pulse Rate 92 Respiratory Rate 16 Blood Pressure 137/83 H Blood Pressure Mean 101 Pulse Ox 100 Oxygen Delivery Method Room Air Positive well nourished and well developed General Appearance ED: well developed and NAD HEENT Reports moist mucous membranes normocephalic and atraumatic Eyes EOMs intact bilaterally and conjunctivae normal General Eye ED: Yes normal appearance of both eyes Neck no lymphadenopathy and supple General: Negative for tenderness Chest Wall Chest: Negative for tenderness Resp normal respiratory effort and normal air movement Effort and Inspection: symmetric chest movement; Negative for respiratory distress Cardio regular rate, regular rhythm and no murmurs Peripheral Pulses: pulses 2+ throughout GI normal to inspection, nondistended, normoactive bowel sounds and non-tender Palpation: Negative for guarding or rebound tenderness present Back/Spine no CVA tenderness and no thoracic nor lumbar tenderness Extremity normal to inspection Extremity Narrative: Varicosities noted upper outer thigh slightly lower extremity. There is no medial thigh tenderness no calf tenderness. Soft compartments. Pulses intact distally. General Extremety ED: Negative for edema or tenderness General Extremity: Negative for edema Neuro oriented x3 and no sensory deficits noted Sensorium / Orientation: awake and alert Skin no rashes or lesions noted and no wounds MDM MDM MDM Narrative Medical decision making narrative: Interventions / MDM: Differential diagnosis: Muscle strain, varicose veins, dyspnea Diagnosis considered but do not suspect: DVT ultrasound negative. Pulmonary embolism however negative D-dimer. Pneumothorax however negative chest x-ray. My EKG interpretation: Sinus rate of 84, no ST or T wave changes. Imaging independently reviewed and interpreted by myself: 2 view chest x-ray: No acute process. No pneumothorax. External documents reviewed: N/A Test considered but not ordered:N/A ED course: Tachycardia per EMS EKG, right lower extremity pain. EKG ordered. Low risk Wells criteria for PE with tachycardia. Will check labs and D-dimer. 0435: 2 point bedside ultrasound performed by myself negative for any popliteal DVT or any proximal DVT at the femoral saphenous joint down proximal two thirds of the femoral vein. All compressible. Patient varicosities superficially also evaluated no thrombus noted. Her tenderness along the lateral thigh evaluate ultrasound there is no abscess or fluid noticed along her tenderness area. She did report increasing activities over the last couple days with cleaning. 0449: EKG sinus rhythm no acute findings. D-dimer negative at 0.46. Creatinine 0.67. Hemoglobin 11 .7. Two-view chest x-ray ordered due to dyspnea. 0525: Checks x-ray treat by myself no acute process no pneumothorax. Vitals remained stable. Will ambulate with a pulse ox. 0555: Ambulated pulse ox greater than 93% per nursing. Currently at this time no formal ultrasound available to rule out DVT. Staff comes in at 7:30 AM, I discussed options with patient and significant other for outpatient order versus daily emergency department to get this done. They would like to wait and have it formally ruled out prior to discharge. Therefore order placed for DVT studies. 0740: Discussed with transport tank technician, no DVTs. Extensive varicose veins noted nonthrombosed. Will have patient follow-up with vascular surgery as an outpatient. Re-evaluation: stable Disposition discussed with patient/family/significant other: Patient and significant other Case discussed with consulting clinician: N/A This note was generated with [employer]ee[employer]ee[employer] dictation software. It may contain incorrect words, spelling, and punctuation that were not noted in checking the note before signing. Lab Data Attestation: I reviewed the patient's lab results. Labs: Laboratory Results - last 24 hr 10/02/24 04:24 WBC 6.4 RBC 3.89 L Hgb 11.7 L Hct 34.5 L MCV 88.7 MCH 30.1 MCHC 33.9 RDW Std Deviation 41.8 RDW Coeff of Misty 12.9 Plt Count 152 MPV 9.4 Immature Gran % (Auto) 0.300 Neut % (Auto) 75.9 H Lymph % (Auto) 14.5 L [place] % (Auto) 6.1 Eos % (Auto) 2.7 Baso % (Auto) 0.5 Absolute Neuts (auto) 4.9 Absolute Lymphs (auto) 0.93 Nucleated RBC % 0 D-Dimer Quant (PE/DVT) 0.46 Sodium 139 Potassium 3.8 Chloride 108 H Carbon Dioxide 25.0 Anion Gap 6 BUN 17 Creatinine 0.67 Estim Creat Clear Calc 101.20 Est GFR (MDRD) Af Amer 120 Est GFR (MDRD) Non-Af 99 BUN/Creatinine Ratio 25.4 H Glucose 99 Calcium 8.4 L Discharge Plan Triage Chief Complaint: Lower Extremity Injury ED Provider: Le,Austen Dx/Rx/DC Orders Clinical Impression: Muscle strain of right thigh, Varicose vein of leg, Dyspnea Instructions: ED Muscle Strain, Extremity, ED Varicose Veins Prescriptions: No Action ferrous sulfate [Iron (ferrous sulfate)] 325 mg (65 mg iron) Tablet 325 mg PO QODAY multivitamin Capsule 1 cap PO DAILY oxycodone 5 mg Tablet 5 mg PO Q6H PRN PRN (Reason: Pain Score 4-10/10) 5 Days Qty: 20 0RF Primary Care Provider: Jose M Schulz Referrals: Ryan Becerra MD [Med Staff - Active Staff] - 1-2 Weeks Jose M Schulz DO [Primary Care Provider] - 1 Week Activity Restrictions/Additional Instructions: EKG, D-dimer, chest x-ray negative. You have varicose veins. Ultrasound of your right lower extremity was performed negative for deep vein thrombosis. Follow-up with vascular surgery for evaluation of your varicose veins. Print Language: Armenian Disposition Disposition: Home, Self Care
[2024-10-02 04:33] LABS: Absolute Lymphocyte Count 0.93 X10^3/uL (0.83-4.51); Absolute Neutrophil Count 4.9 X10^3/uL (2.0-7.7); Basophil# 0.03 X10^3/uL; Basophil% 0.5 % (0-1); Eosinophil# 0.17 X10^3/uL; Eosinophils% 2.7 % (0-5); Hematocrit 34.5 % (37-47); Hemoglobin 11.7 g/dL (12.0-15.0); Lymphocyte # 0.93 X10^3/ul (0.83-4.51); Lymphocyte % 14.5 % (19-41); Mean Corp Hgb Conc 33.9 g/dL (32-36); Mean Corpuscular Hgb 30.1 pg (27.0-32.0); Mean Corpuscular Volume 88.7 fL (81-99); Mean Platelet Vol. 9.4 fl (6.2-12.0); Monocyte# 0.39 X10^3/uL; Monocyte% 6.1 % (0-10); NRBC Flagged by Analyzer 0 % (0-5); Neutrophil # 4.87 X10^3/uL (2.7-7.7); Neutrophil % 75.9 % (47-70); Platelet Count 152 K/mm3 (150-450); RBC Distribution Width CV 12.9 % (11.6-14.6); RBC Distribution Width SD 41.8 fl (35.1-43.9); Red Blood Count 3.89 M/mm3 (4.2-5.4); White Blood Count 6.4 K/mm3 (4.4-11.0)
[2024-10-02 04:45] LABS: D-Dimer Quantitative (DVT/PE) 0.46 FEU/ug/m (0.27-0.49)
[2024-10-02 04:46] LABS: Anion Gap 6 (5-15); BUN 17 mg/dL (7-18); BUN/Creat Ratio 25.4 RATIO (10-20); Calcium,Total 8.4 mg/dL (8.5-10.1); Chloride 108 mmol/L (98-107); Creatinine, Serum 0.67 mg/dL (0.55-1.02); EST Glomerular Filtration Rate 99 mL/min (>60); Est Glom Filt Rate - Afr Amer 120 mL/min (>60); Glucose 99 mg/dL (74-106); Potassium 3.8 mmol/L (3.5-5.1); Sodium Level 139 mmol/L (136-145)
--- NOTE | 2024-10-02 05:15 | RAD_ITS ---
EXAM: XR CHEST, 2 VIEWS CLINICAL INDICATION: dyspnea TECHNIQUE: Frontal and lateral views of the chest. COMPARISON: No relevant prior studies available. FINDINGS: LUNGS AND PLEURAL SPACES: Unremarkable. No consolidation or edema. No pneumothorax. No effusion. HEART: Unremarkable. Cardiac silhouette not enlarged. Normal pulmonary vasculature. MEDIASTINUM: Central airways and mediastinal contour are unremarkable. Calcified left hilar lymph nodes are present indicating remote granulomatous infection. BONES/JOINTS: Minimal thoracic dextroscoliosis. Accentuated thoracic kyphosis. Lower thoracic degenerative disc space narrowing with marginal osteophytes. No acute fracture. SOFT TISSUES: Clustered right upper quadrant calcifications consistent with cholelithiasis. RAD/Chest PA and Lateral IMPRESSION: No radiographic evidence of acute cardiopulmonary disease. Cholelithiasis. Electronically Signed: Milind Watts MD at 6:30 EST ,
[2024-10-02 05:29] VITALS: O2SAT 96
--- NOTE | 2024-10-02 05:58 | VDLE_ITS ---
Reason For Study: RLE PAIN RIGHT LEFT GSV is normal. CFV is compressible, spontaneous, competent, CFV is compressible, spontaneous, competent and demonstrates pulsatile venous flow. and demonstrates pulsatile venous flow. Compressible ASV ([place] 2.88cm x 1.63cm) noted FV is compressible, spontaneous, competent in the LT GROIN. and demonstrates pulsatile venous flow. POP V is compressible, spontaneous, competent and demonstrates pulsatile venous flow. T/P Trunk is compressible. PTV is compressible. RT PerV is compressible. Compressible ASV ([place]. 3.14cm x 1.74cm) noted in RT GROIN. Compressible varicosities noted throughout lateral and anterior right thigh. Procedure This is a venous duplex using B-mode, color flow and spectral Doppler. Exam performed portable in ED. A preliminary report was called and/or faxed to Dr. Lo & ED @ 08:00. VL/Venous Duplex US, Unilateral Interpretation Summary Deep veins of the right lower extremity are patent and compressible segmentally . There is no evidence of right lower extremity deep vein thrombosis. Valvular competence sandra ears intact within the proximal deep venous system on the right . The right great saphenous vein a ppears patent and compressible segmentally. The left common femoral vein is patent and compressib le . A large, patent and compressible accessory saphenous vein is noted in both the right and left g roin. Compressible varicosities are also noted in the right lateral and anterior thigh. Pulsatile flow is noted in the deep venous system bilaterally, which may be indicative of elevated central jorje ous pressure (i.e. congestive heart failure, pulmonary hypertension, etc.). Clinical correlation i s advised. Ordering Physician: Austen Lo Referring Physician: Jose M Schulz Performed By: Mague Lorenzo, RDCS, RVT
[2024-10-02 07:45] VITALS: BP 112/77; PULSE 76; RESP 18; TEMP 36.6; O2SAT 99
== END 2024-10-02 07:52 | disposition home or self-care (01) ==
PROVIDERS: Emergency Provider Emergency Medicine; PCP Family Medicine; Visit Provider Emergency Medicine
DX: S76.911A Strain of unspecified muscles, fascia and tendons at thigh level, right thigh, initial encounter (principal); X58.XXXA Exposure to other specified factors, initial encounter; I83.91 Asymptomatic varicose veins of right lower extremity; R06.00 Dyspnea, unspecified; Z79.899 Other long term (current) drug therapy
CPT/HCPCS: 71046; 80048; 85025; 85379; 93005; 93971; 99285; A4216

== ENCOUNTER 2025-09-09 07:31 | Emergency (ER) | payer OTHER, SELFPAY ==
[2025-09-09] VITALS (7 sets, daily range): BP systolic 104–139; BP diastolic 65–84; PULSE 64–89; RESP 14–19; TEMP 36.6–36.8; O2SAT 99–100; BMI 33.5
--- NOTE | 2025-09-09 08:15 | RAD_ITS ---
PROCEDURE: CHEST PA AND LATERAL 09/09/2025 REASON FOR EXAM: CHEST PAIN TECHNIQUE: Procedure Code: RADCXR Modality: DX Procedure: CHEST PA AND LATERAL FINDINGS: Hardware: Heart: Mediastinum: Lungs: Bones: Reading Location: [place] [id number]
--- NOTE | 2025-09-09 08:15 | EKG12_ITS ---
Test Reason : PALPS Blood Pressure : */* mmHG Vent. Rate : 72 BPM Atrial Rate : 72 BPM P-R Int : 160 ms QRS Dur : 84 ms QT Int : 386 ms P-R-T Axes : 70 20 59 degrees QTcB Int : 422 ms Normal sinus rhythm Nonspecific ST abnormality Abnormal ECG Confirmed by BRIAN NUNES, VARSHA ([id number]), editor in chief newspaper TALIA DOUGHERTY ([id number]) on 09/11/2025 7:28:08 AM Referred By: ESEQUIEL Confirmed By: VARSHA TORRES MD
--- NOTE | 2025-09-09 08:15 | EX.ED.DYSGE1 ---
HPI History of Present Illness Chief Complaint: Palpitations Narrative Narrative: Patient is a 50-year-old female presenting to the emergency department for intermittent palpitations and lightheadedness. Patient has no significant past medical history. Patient states that 3 weeks ago she was making lunches for her kids in the morning when she developed palpitations which she describes as her heart racing. States that she had shortness of breath with it as well as lightheadedness. It lasted about 5 minutes. States that that evening after it happened she felt like her chest was sore across her mid sternum. States that she then had another episode over the weekend. She states that this has never happened to her before. She denies any cardiac history, history of DVT or PE or recent travel, hospitalizations or surgeries. Denies any new lower extremity edema. States she drinks about 3 cups of coffee a day. Denies any alcohol or drug use. [facility] Medical History Wears glasses Wears partial dentures Anemia Easy bruising Restless legs Non-smoker History of edema Bleeding tendency Anemia Home Medications ?Medication ?Instructions ?Recorded ?Last Taken ?Type NK 09/09/25 Unknown History Allergy/AdvReac Type Severity Reaction Status Date / Time No Known Allergies Allergy Verified 09/09/25 07:31 Surgical History History of hysteroscopy Hx of dilation and curettage Social History Smoking Status: Never smoker ROS ROS ED ROS Narrative See HPI EXAM Physical Exam Narrative Exam Narrative: Vital signs: Reviewed General: Alert and oriented x 3. No acute distress HEENT: Head is normocephalic and atraumatic, sinuses nontender, pupils equal round and reactive. Nares are patent. Oropharynx and throat exams normal. Neck: Supple without lymphadenopathy nontender Cardiovascular: Regular rate and rhythm, no murmurs. No rubs or gallops. Normal S1 and S2 Respiratory: Clear to auscultation bilaterally. No wheezes, rales, rhonchi Abdominal: Soft and nontender. Normal bowel sounds. No guarding or rebound. Nonsurgical abdomen Extremities: No lower extremity edema noted. No tenderness. No bruising. Normal range of motion. Normal sensation. Skin: No rash or redness. Neurological: Cranial nerves II through XII are grossly intact. Normal strength and sensation. Normal cerebellar function The rest of the physical exam is unremarkable Const Vital Signs: 09/09/25 07:31 09/09/25 07:44 09/09/25 07:46 Temperature 97.8 F Temperature Source Oral Pulse Rate 75 89 Respiratory Rate 16 19 H Respiratory Effort Normal Non-Labored Blood Pressure 138/84 H 139/80 H Blood Pressure Mean 102 99 Pulse Ox 100 100 Oxygen Delivery Method Room Air Room Air 09/09/25 08:00 09/09/25 09:00 09/09/25 09:30 Temperature Temperature Source Pulse Rate 68 65 67 Respiratory Rate 14 15 17 Respiratory Effort Blood Pressure 118/76 108/73 113/76 Blood Pressure Mean 89 85 88 Pulse Ox 99 100 100 Oxygen Delivery Method 09/09/25 11:00 09/09/25 11:27 Temperature 98.2 F Temperature Source Pulse Rate 68 64 Respiratory Rate 18 14 Respiratory Effort Blood Pressure 104/65 124/71 H Blood Pressure Mean 78 88 Pulse Ox 100 99 Oxygen Delivery Method MDM MDM MDM Narrative Medical decision making narrative: Patient is a 50-year-old female presenting to the emergency department for intermittent palpitations and lightheadedness. Patient was seen and examined. Vitals are stable. Patient resting bed comfortably in no acute distress. Differential includes but is not limited to: Thyroid abnormality, electrolyte imbalance, ACS, pneumonia, cardiac dysrhythmia EKG shows normal sinus rhythm with nonspecific ST abnormality. No elevation or depression. No abnormal T wave inversions. CBC with no leukocytosis and normal hemoglobin. BMP with no significant abnormalities. TSH within normal limits. Magnesium within normal limits. Troponin is negative. Urine negative. Chest x-ray reviewed myself, no opacities, pneumothorax or wide mediastinum seen. Radiology read in agreement. Patient had no episodes of palpitations while here. No abnormal heart rhythm noted on monitor during her observed stay. A Holter monitor was placed and patient was instructed how to use this. Patient discharged from the Emergency Department. I do not feel that the patient's evaluation reveals any acute reason for admission at this time. I instructed them to either follow-up with their primary care physician or promptly return to the Emergency Department for reevaluation should symptoms worsen or new symptoms develop. I explained what symptoms would indicate the need to return to the emergency department. Shared decision making was used. The patient voiced understanding of the treatment plan and is agreeable with it. Clinical impression Palpitations History & Record Review Discussion w/independent historian: Patient and Significant other Lab Data Attestation: I reviewed the patient's lab results. Labs: Laboratory Results - last 24 hr 09/09/25 09/09/25 07:45 08:23 WBC 5.6 RBC 4.38 Hgb 13.1 Hct 38.3 MCV 87.4 MCH 29.9 MCHC 34.2 RDW Std Deviation 42.9 RDW Coeff of Misty 13.3 Plt Count 192 MPV 9.7 Immature Gran % (Auto) 0.500 Neut % (Auto) 61.7 Lymph % (Auto) 23.2 [place] % (Auto) 10.7 H Eos % (Auto) 3.0 Baso % (Auto) 0.9 Absolute Neuts (auto) 3.5 Absolute Lymphs (auto) 1.30 Nucleated RBC % 0 Sodium 137 Potassium 3.8 Chloride 105 Carbon Dioxide 22.8 Anion Gap 10 BUN 12 Creatinine 0.64 L Estim Creat Clear Calc 102.69 Est GFR (MDRD) Non-Af 106 BUN/Creatinine Ratio 19.3 Glucose 90 Calcium 9.4 Magnesium 2.0 Troponin T High Sens < 6 NT pro BNP II 144 TSH 1.480 Urine Test Negative Radiography Chest X-Ray - ED: 2 View, Read by ED Physician, Normal, No Acute Disease and No Infiltrates Discharge Plan Triage Chief Complaint: Palpitations ED Provider: Claudia Lee Dx/Rx/DC Orders Clinical Impression: Heart palpitations Instructions: ED Heart Palpitations Prescriptions: No Action NK Primary Care Provider: Yumi Weaver BATTING MACHINE OPERATOR INSULATION Referrals: Jose M Schulz DO [Non-Staff, Family Practice] - As soon as possible Activity Restrictions/Additional Instructions: You need to follow-up with your primary care doctor soon as possible. Wear the Holter monitor and follow the instructions that we gave you for using it and returning it. Your evaluation in the Emergency Department did not reveal any acute reason for admission. However, I want to emphasize that you may be early in the course of a disease process or illness even if it is not present. For this reason you should follow-up within 24 hours for reevaluation with either your primary care physician or if necessary back here in the Emergency Department. You should return to the Emergency Department immediately if your symptoms worsen or new symptoms develop. Print Language: Bengali Disposition Disposition: Home, Self Care Discharge Date/Time: 09/09/25 11:28
[2025-09-09 08:29] LABS: Hematocrit 38.3 % (37-47); Hemoglobin 13.1 g/dL (12.0-15.0); Immature Granulocytes Count 0.030 X10^3/uL (0.0-0.0); Mean Corp Hgb Conc 34.2 g/dL (32-36); Mean Corpuscular Volume 87.4 fL (81-99); Mean Platelet Vol. 9.7 fl (6.2-12.0); NRBC Flagged by Analyzer 0 % (0-5); Platelet Count 192 K/mm3 (150-450); RBC Distribution Width CV 13.3 % (11.6-14.6); RBC Distribution Width SD 42.9 fl (35.1-43.9); Red Blood Count 4.38 M/mm3 (4.2-5.4); White Blood Count 5.6 K/mm3 (4.4-11.0)
[2025-09-09 08:33] LABS: Internal QC Validated? YES +Cl - CLEAR BKGD; Pregnancy, Urine Negative Negative
[2025-09-09 08:34] LABS: Record Kit Lot#,Urine Preg 0000980607
[2025-09-09 08:59] LABS: Anion Gap 10 (5-15); BUN 12 mg/dL (4-19); BUN/Creat Ratio 19.3 RATIO (10-20); Calcium,Total 9.4 mg/dL (7.6-11.0); Carbon Dioxide 22.8 mmol/L (21.0-32.0); Chloride 105 mmol/L (98-108); Estimated Creatinine Clearance 102.69 ml/min (50-250); Glucose 90 mg/dL (70-99); Magnesium 2.0 mg/dL (1.5-2.2); Potassium 3.8 mmol/L (3.3-5.1); Pro- Brain NATRIURETIC PEPTIDE 144 pg/mL (<=900); Troponin T High Sensitivity < 6 ng/L (<=14)
== END 2025-09-09 11:28 | disposition home or self-care (01) ==
PROVIDERS: Emergency Provider Student in an Organized Health Care Education/Training Program; PCP Nurse Practitioner Family; Visit Provider Student in an Organized Health Care Education/Training Program
DX: R00.2 Palpitations (principal); R42 Dizziness and giddiness; R06.02 Shortness of breath
CPT/HCPCS: 71046; 80048; 81025; 83735; 83880; 84443; 84484; 85025; 93005; 99284; A4216

== ENCOUNTER → 2025-09-09 | Outpatient (CLI) | payer OTHER, SELFPAY | END | disposition home or self-care (01) | LOC: PSN 09:46 | PROVIDERS: PCP Nurse Practitioner Family; Visit Provider Student in an Organized Health Care Education/Training Program | DX: R00.2 Palpitations (principal); R42 Dizziness and giddiness | CPT/HCPCS: 93225; 93226 ==